=== PATIENT | male | born 1965 | race Caucasian/White ===

== ENCOUNTER 2017-08-24 03:37 | Observation (INO) | payer MEDICARE, OTHER ==
[2017-08-24 04:05] LABS: #Eosinphils 0.1 thou/uL (0.0-0.7); #Lymphocytes 1.2 thou/uL (1.20-3.40); #Monocytes 0.2 thou/uL (0.11-0.59); #Neutrophils 9.4 thou/uL (1.40-6.50); %Basophils 0.3 % (0.0-1.0); %Eosinophils 0.6 % (0.0-10.0); %Monocytes 2.2 % (0.0-10.0); %Neutrophils 85.9 % (42.0-75.0); Hemoglobin 13.3 g/dL (14.0-18.0); Mean Corpuscular HGB CONC 33.6 g/dL (32.0-36.0); Mean Corpuscular Hemoglobin 31.4 pg (27.0-31.0); Mean Corpuscular Volume 93.5 fl (80.0-94.0); Mean Platelet Volume 6.8 fL (7.4-10.4); Platelet Count 182 thou/uL (130-400); RBC Distribution Width 11.6 % (11.5-14.5); Red Blood Cell (RBC) Count 4.24 mill/uL (4.70-6.10); White Blood Cell (WBC) Count 10.9 thou/uL (4.8-10.8)
[2017-08-24 04:26] LABS: ALT (SGPT) 23 U/L (8-55); AST (SGOT) 24 U/L (5-34); Albumin 3.8 g/dL (3.5-5.0); Alkaline Phosphatase 98 U/L (40-150); Anion Gap 13 mmol/L (10-20); BUN (Urea Nitrogen) 13 mg/dL (8.4-25.7); Bilirubin, Total 0.5 mg/dL (0.2-1.2); CK (CPK) 92 U/L (30-200); Calc. Creatinine Clearance 0 mL/min (70-130); Calcium 9.2 mg/dL (7.8-10.44); Carbon Dioxide 26 mmol/L (22-29); Chloride 107 mmol/L (98-107); Estimated GFR-MDRD 76; Globulin 2.7 g/dL (2.4-3.5); Glucose 97 mg/dL (70-105); Potassium 3.9 mmol/L (3.5-5.1); Protein, Total 6.5 g/dL (6.0-8.3); Sodium 142 mmol/L (136-145)
[2017-08-24 04:31] LABS: CKMB 0.7 ng/mL (0-6.6); Troponin I Less than 0.010 ng/mL (< 0.028)
[2017-08-24 05:18] LABS: Bilirubin Negative (Negative); Blood, Urine Negative (Negative); Clarity CLEAR (Clear); Glucose, Urine (Dipstick) Negative (Negative); Leukocyte Negative (Negative); Nitrite Negative (Negative); Protein, Urine (Dipstick) Negative (Neg-Trace); Specific Gravity, Urine 1.024 (1.002-1.036); Urobilinogen 0.2 mg/dL (0.2-1.0); pH, Urine 5.5 (5.0-9.0)
[2017-08-24] MEDS ORDERED: Acetaminophen 500 MG TAB ONE (05:28)
[2017-08-24] MEDS ORDERED: Ibuprofen 800 MG TAB ONE (06:18)
[2017-08-24] MEDS ORDERED: ADENOSINE 60 MG/20 ML VIAL ONE (06:44)
[2017-08-24 07:26] LABS: Troponin I Less than 0.010 ng/mL (< 0.028)
[2017-08-24] MEDS ORDERED: Ondansetron ODT 4 MG TAB PO PRN ×2 (07:36→08:07)
[2017-08-24] MEDS ORDERED: Acetaminophen 325 MG TAB PO PRN ×2 (07:36→08:07)
[2017-08-24] MEDS ORDERED: Ondansetron HCl/PF 4 MG/2 ML Vial IVP PRN (07:36)
[2017-08-24] MEDS ORDERED: Sodium Chloride 0.9% 1,000 ML IV SCH (07:45)
[2017-08-24 07:56] VITALS: BMI 30.9
[2017-08-24] MEDS ORDERED: Acetaminophen/Codeine 30-300mg Tablet PO PRN (08:07)
[2017-08-24] MEDS ORDERED: Benzonatate 100 MG CAP PO PRN (08:07)
--- NOTE | 2017-08-24 08:34 | HP ---
PRIMARY CARE PROVIDER: Robyn Luciano. CHIEF COMPLAINT: Referred to [facility] by [facility] for chest pain. HISTORY OF PRESENT ILLNESS: The patient woke up with chills, bodyaches, was told he had a fever of 1 01 in the emergency room. No sweat. He had a pressure chest pain into both arms that started about 3-4 o'clock this morning, now feels normal. He has had similar episodes multiple times in the past w ithout the chest pain. 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 ALLERGIES: Allergic to DEMEROL. CURRENT MEDICATIONS: Thiamine, mag oxide, trazodone 100 at bedtime, tizanidine 4 mg at bedtime, Lami ctal 150 mg twice a day, Klonopin 1 mg at bedtime, Flomax 0.4 mg daily, Protonix 40 mg daily, Proamat ine 5 mg daily, Prozac 40 mg at bedtime, Aricept 10 mg a day, Bupropion 150 mg 2 in the morning, Armo dafinil 150 mg daily, Abilify 5 mg daily, Tylenol #3 one or two every 6 hours as needed. PAST SURGICAL HISTORY: Total knee replacement on the right, knee surgery on the left, 2 kyphoplastie s post-falls fractures, facial reconstruction times many, left retinal detachment repair and multiple other minor musculoskeletal surgeries. FAMILY HISTORY: Mother with hypertension. SOCIAL HISTORY: , nonsmoker, nontobacco user. CODE STATUS: Full code status. next of kin. REVIEW OF SYSTEMS: EYES: Chronic blurred vision Diplopia, very poor vision in the left eye. ENT: No ear pain or drainage. No nasal bleeding. No trouble swallowing. CARDIAC: See present illness. No orthopnea or paroxysmal nocturnal dyspnea. RESPIRATORY: No cough, wheezing or asthma. GASTROINTESTINAL: No nausea, vomiting, diarrhea, constipation. GENITOURINARY: No hematuria or dysuria. MUSCULOSKELETAL: He has chronic pain syndrome in multiple areas of his body. He has had frequent fa lls. NEUROLOGIC: He has had a history of seizures on medications related to his traumatic brain injury. SKIN: Bruises easily. No rash. HEME/LYMPH: No tender or swollen lymph nodes. PHYSICAL EXAMINATION: GENERAL: He is an alert and cooperative man. VITAL SIGNS: Blood pressure 107/59, pulse 86, respirations 16, temperature 98.8. HEENT: Reveals pupils equal, round, reactive to light. Extraocular movements grossly intact. He angel s ptosis on the right, chronic. Sclerae white. Tympanic membranes clear. Nose clear. Oral mucous membranes are wet. Dental hygiene is good. NECK: No jugular venous distention, adenopathy or thyromegaly. CHEST: Clear to auscultation and percussion. HEART: Heart has a regular rate and rhythm. Heart sounds are clear. There are no appreciated murmu rs or gallops. ABDOMEN: Soft, bowel sounds are normal. There is no hepatosplenomegaly, no mass, no rebound, no bru its. EXTREMITIES: Reveal no cyanosis, clubbing or edema. PULSES: Carotid, radial, femoral, and dorsalis pedis pulses intact. SKIN: Warm and dry without significant bruising or rash. HEME/LYMPH: No petechial lesions. Warm, dry. No tender or swollen lymph nodes in axilla, inguinal or cervical area. NEUROLOGICAL: Right ptosis. Facies grossly symmetric. Extraocular movements are intact. Cranial n erve 7 intact. Moves all extremities. Deep tendon reflexes grossly symmetric. Toes downgoing bilat erally. EKG normal, reviewed by me. X-RAY FINDINGS: Chest x-ray, poor inspiration. No cardiomegaly, CHF or infiltrate, reviewed by me. LABORATORY DATA: Comp metabolic profile normal. Cardiac enzymes normal x2. White count is mildly e levated at 10.9 with an absolute neutrophilia, hemoglobin 13.3, platelet count 182,000. Urine is antony ar. ADMITTING DIAGNOSES: 1. Chest pain. 2. Closed head injury in the distant past. 3. Atrial septal defect repair in 2011. 4. Chronic tremor. 5. Seizure disorder. 6. Fever and chills without evidence of focal infection. PLAN: 1. Cardiac stress test. 2. Continue home medicines.
[2017-08-24] MEDS ORDERED: Aspirin 325 MG TAB PO SCH (09:00)
[2017-08-24] MEDS ORDERED: Bupropion 150 MG XL TAB PO SCH (09:00)
[2017-08-24] MEDS ORDERED: lamoTRIgine 100 MG TAB PO SCH (09:00)
[2017-08-24] MEDS ORDERED: Aripiprazole 10 MG TAB PO SCH (09:00)
[2017-08-24] MEDS ORDERED: Midodrine HCl 5 MG TAB PO SCH (09:00)
[2017-08-24] MEDS ORDERED: Tamsulosin HCl 0.4 MG CAP PO SCH (09:00)
[2017-08-24] MEDS ORDERED: Magnesium Oxide 400 MG TAB PO SCH (09:00)
--- NOTE | 2017-08-24 09:01 | RAD ---
ONE VIEW CHEST: HISTORY: Chest pain and anxiety. COMPARISON: 08/10/11. FINDINGS: There are sternotomy wires. Heart is enlarged. Pulmonary vessels and hilum are normal. Increased o pacification of the left lung base with pleural and parenchymal changes. Elevation right hemidiaphra gm. No pneumothorax or osseous abnormalities. IMPRESSION: Pleural and parenchymal changes of the left lung base. Continued surveillance. POS: OFF
[2017-08-24 14:56] LABS: Troponin I Less than 0.010 ng/mL (< 0.028)
--- NOTE | 2017-08-24 15:50 | NM ---
NUCLEAR MEDICINE MYOCARDIAL PERFUSION EVALUATION. 08/24/17 CLINICAL HISTORY: Chest pain. History of atrial septal defect repair. FINDINGS: Evaluation of stress and rest imaging reveals no significant perfusion defect. Gated imaging reveals wall motion and contractility with a calculated LVEF at 65%. Reference stress EKG portion of the exam through the Division of Cardiology for additional details. Calculated LVEF is 65%. IMPRESSION: 1. No sonographic evidence of significant ischemia or scarring. 2. Normal left ventricular systolic function. POS: MAVIS
[2017-08-24 15:51] VITALS: TEMP 97.8
[2017-08-24 16:02] VITALS: BP 100/50
--- NOTE | 2017-08-24 17:42 | DIS ---
DATE OF ADMISSION: 08/24/2017 DATE OF DISCHARGE: 08/24/2017 PRIMARY CARE PROVIDER: Robyn Luciano M.D. DISCHARGE DISPOSITION: Home. FINAL DIAGNOSES: Noncardiac chest pain, history of closed head injury in 1983, history of septal def ect and repair in 2011, chronic tremors. DISCHARGE MEDICATIONS: Same as home medicines, Tylenol No. 3 one or two every 6 hours as needed for pain, Abilify 5 mg daily, armodafinil 150 mg a day, bupropion XL 300 mg a day, Aricept 10 mg at bedti ar, ProAmatine 5 mg daily, Protonix 40 mg a day, Flomax 0.4 mg a day, Klonopin 1 mg at bedtime, Lamic tammy 150 mg twice a day, tizanidine 4 mg at bedtime, trazodone 100 mg at bedtime, Prozac 80 mg at bedt oneil. ALLERGIES: MEPERIDINE CODE STATUS: FULL. PENDING AT THE TIME OF DISCHARGE: Nothing. HISTORY: The patient referred to [facility] by [facility] for ch est pain. The patient awoke this morning with some chills, body aches which are not uncommon. He angel d pressure, chest pain radiating to both arms, unsure how long it lasted. His cardiorespiratory exam was unremarkable. His EKG was normal, reviewed by me. LABORATORY: Mild elevation of white count 10.9, hemoglobin 13.3, platelet count 182,000. D-dimer wa s normal 0.34. Comp metabolic profile normal. Cardiac enzymes normal. Urine is clear. Cardiac str ess test is normal. This has been discussed with the patient. He and his are comfortable with discharge. Currently, his vital signs, his last 2 blood pressures 107/59, 97/55; pulse 65-86; O2 sat 95 on room air; respirations 16-18. Cardiorespiratory exam normal. CONSULTATIONS: None. PROCEDURES: None. He has been asked to follow up with his primary care doctor in 7 days.
[2017-08-24] MEDS ORDERED: traZODone HCl 50 MG TAB PO SCH (21:00)
[2017-08-24] MEDS ORDERED: clonazePAM 1 MG TAB PO SCH (21:00)
[2017-08-24] MEDS ORDERED: Latanoprost 0.005% Ophth Soln 2.5 ml Bottle EA EYE SCH (21:00)
[2017-08-24] MEDS ORDERED: Donepezil HCl 10 MG TAB PO SCH (21:00)
[2017-08-24] MEDS ORDERED: tiZANidine HCl 4 MG TAB PO SCH (21:00)
--- NOTE | 2017-09-01 18:28 | EKG ---
Test Reason : CP Blood Pressure : / mmHG Vent. Rate : 077 BPM Atrial Rate : 077 BPM P-R Int : 172 ms QRS Dur : 098 ms QT Int : 414 ms P-R-T Axes : 037 051 066 degrees QTc Int : 468 ms Normal sinus rhythm Normal ECG Confirmed by VANCE RAZO D.O. ([id number]), loan expeditor MILLICENT FAUST ([id number]) on 09/01/2017 6:27:13 PM Referred By: Confirmed By:VANCE RAZO D.O.
== END 2017-08-24 16:24 | disposition home or self-care (01) ==
LOC: ERS 03:37 → 2SW 05:48
PROVIDERS: ADMIT Internal Medicine; ATTEND Internal Medicine
DX: R07.89 Other chest pain (principal); G40.909 Epilepsy, unspecified, not intractable, without status epilepticus; R25.1 Tremor, unspecified; R50.9 Fever, unspecified; Z88.5 Allergy status to narcotic agent; Z79.899 Other long term (current) drug therapy; Z87.828 Personal history of other (healed) physical injury and trauma
CPT/HCPCS: 71045; 78452; 80053; 81003; 82550; 82553; 84484 ×2; 85025; 85379; 87040; 93005; 93017; 99285; A9500; 36415; J0153

== ENCOUNTER 2019-08-18 16:46 | Emergency (ER) | payer MEDICARE, OTHER ==
[2019-08-18] MEDS ORDERED: Lidocaine 1% w/Epinephrine 1:100K 20 ML VIAL ONE (17:05)
[2019-08-18] MEDS ORDERED: Adacel (T-DAP) 0.5 ML SYRINGE ONE (17:11)
[2019-08-18] MEDS ORDERED: Bacitracin 1 PK ONE (18:05)
== END 2019-08-18 18:21 | disposition home or self-care (01) ==
LOC: ERS 16:46
DX: S01.311A Laceration without foreign body of right ear, initial encounter (principal); Z79.899 Other long term (current) drug therapy; X58.XXXA Exposure to other specified factors, initial encounter
CPT/HCPCS: 12013; 90471; 90715

== ENCOUNTER 2022-12-12 19:30 | Outpatient (CLI) | payer MEDICARE, BC | END 2022-12-12 19:31 | disposition home or self-care (01) | LOC: SLEEPLAB 19:30 | PROVIDERS: ATTEND Internal Medicine Critical Care Medicine | DX: G47.33 Obstructive sleep apnea (adult) (pediatric) (principal); R53.83 Other fatigue; E66.9 Obesity, unspecified; R06.83 Snoring | CPT/HCPCS: 95810 ==

== ENCOUNTER 2023-02-09 17:00 | Outpatient (CLI) | payer MEDICARE, BC | END 2023-02-09 17:01 | disposition home or self-care (01) | LOC: SLEEPLAB 17:00 | PROVIDERS: ATTEND Internal Medicine Critical Care Medicine | DX: G47.33 Obstructive sleep apnea (adult) (pediatric) (principal); R53.83 Other fatigue; E66.9 Obesity, unspecified; R06.83 Snoring; G47.10 Hypersomnia, unspecified; G47.31 Primary central sleep apnea; Z68.41 Body mass index [BMI] 40.0-44.9, adult | CPT/HCPCS: 95811 ==

== ENCOUNTER 2023-10-12 22:10 | Inpatient (IN) | payer MEDICARE, BC ==
[2023-10-12 22:40] LABS: #Basophils 0.04 10x3/uL (0.0-0.2); %Basophils 0.3 % (0.0-1.0); %Eosinophils 1.7 % (0.0-10.0); %Lymphocytes 18.1 % (21.0-51.0); %Monocytes 5.2 % (0.0-10.0); %Neutrophils 74.2 % (42.0-75.0); Hematocrit 35.5 % (42.0-52.0); Hemoglobin 11.7 g/dL (14.0-18.0); Mean Corpuscular Hemoglobin 28.3 pg (27.0-31.0); Mean Corpuscular Volume 85.7 fL (78.0-98.0); Mean Platelet Volume 9.4 fL (7.4-10.4); Platelet Count 227 10x3/uL (130-400); RBC Distribution Width 14.1 % (11.5-14.5); Red Blood Cell (RBC) Count 4.14 mill/uL (4.70-6.10)
[2023-10-12 23:00] LABS: ALT (SGPT) 11 U/L (8-55); AST (SGOT) 14 U/L (5-34); Albumin 2.8 g/dL (3.5-5.0); Alkaline Phosphatase 90 U/L (40-110); Anion Gap 11 mmol/L (10-20); BUN (Urea Nitrogen) 15 mg/dL (8.4-25.7); Bilirubin, Total 0.2 mg/dL (0.2-1.2); Calc. Creatinine Clearance 0 mL/min (70-130); Calcium 8.4 mg/dL (7.8-10.44); Carbon Dioxide 21 mmol/L (22-29); Chloride 110 mmol/L (98-107); Estimated GFR 86; Globulin 3.5 g/dL (2.4-3.5); Glucose 91 mg/dL (70-105); Potassium 3.8 mmol/L (3.5-5.1); Protein, Total 6.3 g/dL (6.0-8.3); Sodium 138 mmol/L (136-145)
[2023-10-12 23:04] LABS: Troponin I Less than 0.010 ng/mL (< 0.028)
[2023-10-12] MEDS ORDERED: Doxycycline 100 MG VIAL ONE (23:07)
[2023-10-12] MEDS ORDERED: Sodium Chloride 0.9% 200 ML ONE (23:07)
[2023-10-12] MEDS ORDERED: cefTRIAXone (ROCEPHIN) 1 GM VIAL ONE (23:09)
[2023-10-13] MEDS ORDERED: Lidocaine 1% MPF 2 ML VIAL ONE (00:46)
[2023-10-13] MEDS ORDERED: Ketorolac Tromethamine 30 MG (1 mL) VIAL ONE (00:46)
[2023-10-13] MEDS ORDERED: Acetaminophen 650 MG/20.3 ML UDCUP PO PRN (03:34)
[2023-10-13 05:15] VITALS: BMI 37.4
[2023-10-13] MEDS ORDERED: Bisacodyl 10 MG SUPP PR PRN (07:44)
[2023-10-13] MEDS ORDERED: Bisacodyl 5 MG TAB PO PRN (07:44)
[2023-10-13] MEDS ORDERED: Senokot S 8.6-50 MG TAB PO PRN (07:44)
[2023-10-13] MEDS ORDERED: Ondansetron PF 4 MG/2 ML Vial IVP PRN (07:44)
[2023-10-13] MEDS ORDERED: Electrolyte Replacement Protocol 1 EACH FS SCH (08:30)
[2023-10-13 08:52] LABS: Magnesium 2.1 mg/dL (1.6-2.6)
[2023-10-13] MEDS: Enoxaparin 40 MG (0.4 mL) SYRINGE SC SCH (08:54)
[2023-10-13] MEDS: BuPROPion XL 150 MG ER.TAB PO SCH (08:54)
[2023-10-13] MEDS: Doxycycline 100 MG in Sodium Chloride 0.9% 100 ML IVPB SCH (08:55)
[2023-10-13] MEDS: Tamsulosin HCl 0.4 MG CAP PO SCH (08:56)
[2023-10-13] MEDS: lamoTRIgine 100 MG TAB PO SCH (08:56)
[2023-10-13] MEDS: Magnesium Oxide 400 MG TAB PO SCH (08:56)
[2023-10-13] MEDS: Pantoprazole DR 40 MG TAB PO SCH (08:56)
[2023-10-13] MEDS: Potassium Chloride 20 MEQ TAB PO SCH (08:56)
[2023-10-13] MEDS: FLUoxetine HCl 20 MG CAP PO SCH (08:56)
[2023-10-13] MEDS: Trospium 20 MG TAB PO SCH (08:56)
[2023-10-13] MEDS ORDERED: Non-Formulary Item 1 EACH (Magnesium Oxide [Magnesium Oxide] 400 MG Tablet) PO SCH (09:00)
[2023-10-13] MEDS ORDERED: Non-Formulary Item 1 EACH (Solifenacin Succinate [Vesicare] 10 MG Tab) PO SCH (09:00)
[2023-10-13] MEDS ORDERED: ARMODAFINIL 150 MG PO SCH ×2 (09:00)
[2023-10-13] MEDS ORDERED: BuPROPion XL 150 MG ER.TAB PO SCH (09:00)
[2023-10-13] MEDS ORDERED: Non-Formulary Item 1 EACH (Fluoxetine Hcl [Fluoxetine Hcl] 40 MG Capsule) PO SCH (09:00)
[2023-10-13] MEDS ORDERED: Non-Formulary Item 1 EACH (Lamotrigine [Lamictal] 150 MG Tablet) PO SCH (09:00)
[2023-10-13] MEDS: Acetaminophen 325 MG TAB PO SCH (12:53)
[2023-10-13 13:25] LABS: Legionella Urinary Ag Negative (Negative); Strep pneumo Urine Ag NEGATIVE (NEGATIVE)
[2023-10-13] MEDS ORDERED: Iopamidol 370 76% 100 ML VIAL ONE (13:38)
[2023-10-13 14:37] LABS: Influenza A by NAA Not Detected (NotDetected); Influenza B by NAA Not Detected (NotDetected); RSV by NAA Not Detected (NotDetected); SARS-CoV-2 NAA Rapid Test Not Detected (NotDetected)
[2023-10-13 14:56] LABS: Troponin I Less than 0.010 ng/mL (< 0.028)
[2023-10-13] MEDS: cefTRIAXone\\ROCEPHIN 2 GM in Sodium Chloride 0.9% 100 ML IVPB SCH (17:23)
[2023-10-13] MEDS: Latanoprost 0.005% Ophth Soln 2.5 ml Bottle EA EYE SCH (20:23)
[2023-10-14 04:56] LABS: #Basophils 0.03 10x3/uL (0.0-0.2); %Basophils 0.2 % (0.0-1.0); %Eosinophils 2.2 % (0.0-10.0); %Lymphocytes 13.8 % (21.0-51.0); %Neutrophils 78.4 % (42.0-75.0); Hematocrit 35.2 % (42.0-52.0); Hemoglobin 11.3 g/dL (14.0-18.0); Mean Corpuscular HGB CONC 32.1 g/dL (32.0-36.0); Mean Corpuscular Hemoglobin 28.9 pg (27.0-31.0); Mean Platelet Volume 9.8 fL (7.4-10.4); Platelet Count 195 10x3/uL (130-400); RBC Distribution Width 14.6 % (11.5-14.5); Red Blood Cell (RBC) Count 3.91 mill/uL (4.70-6.10)
[2023-10-14 05:22] LABS: ALT (SGPT) 10 U/L (8-55); AST (SGOT) 13 U/L (5-34); Albumin 2.6 g/dL (3.5-5.0); Alkaline Phosphatase 86 U/L (40-110); Anion Gap 12 mmol/L (10-20); BUN (Urea Nitrogen) 10 mg/dL (8.4-25.7); Bilirubin, Direct 0.1 mg/dL (0.1-0.3); Bilirubin, Total 0.3 mg/dL (0.2-1.2); Calc. Creatinine Clearance 166 mL/min (70-130); Calcium 8.7 mg/dL (7.8-10.44); Carbon Dioxide 21 mmol/L (22-29); Chloride 112 mmol/L (98-107); Estimated GFR 102; Glucose 82 mg/dL (70-105); Potassium 4.2 mmol/L (3.5-5.1); Protein, Total 6.2 g/dL (6.0-8.3); Sodium 141 mmol/L (136-145)
[2023-10-14] MEDS ORDERED: Magnesium 2 GM/50 ML(in water) 2 GM in Premix 1 BAG IVPB SCH (08:00)
[2023-10-14] MEDS: cefTRIAXone (ROCEPHIN) 2 GM VIAL ONE (18:16)
[2023-10-14] MEDS: Donepezil HCl 10 MG TAB PO SCH (21:01)
[2023-10-16] MEDS: Doxycycline 100 MG CAP PO SCH ×2 (11:39→20:37)
[2023-10-16] MEDS: Cefdinir 300 MG CAP PO SCH ×2 (11:39→20:36)
[2023-10-16 21:37] LABS: Mycoplasma pneumoniae IgG AB 285 U/mL (0-99); Mycoplasma pneumoniae IgM AB Less than 770 U/mL (0-769)
[2023-10-17] MEDS: Gabapentin 300 MG CAP PO SCH ×2 (15:08→15:44)
[2023-10-18 04:22] LABS: #Basophils 0.04 10x3/uL (0.0-0.2); %Basophils 0.5 % (0.0-1.0); %Eosinophils 4.2 % (0.0-10.0); %Monocytes 8.6 % (0.0-10.0); %Neutrophils 61.3 % (42.0-75.0); Hematocrit 34.3 % (42.0-52.0); Hemoglobin 11.1 g/dL (14.0-18.0); Mean Corpuscular HGB CONC 32.4 g/dL (32.0-36.0); Mean Corpuscular Hemoglobin 28.5 pg (27.0-31.0); Mean Corpuscular Volume 87.9 fL (78.0-98.0); Mean Platelet Volume 9.3 fL (7.4-10.4); Platelet Count 255 10x3/uL (130-400); RBC Distribution Width 14.4 % (11.5-14.5)
[2023-10-18 04:52] LABS: Anion Gap 11 mmol/L (10-20); BUN (Urea Nitrogen) 11 mg/dL (8.4-25.7); Calc. Creatinine Clearance 115 mL/min (70-130); Calcium 8.8 mg/dL (7.8-10.44); Carbon Dioxide 24 mmol/L (22-29); Chloride 108 mmol/L (98-107); Estimated GFR 101; Glucose 91 mg/dL (70-105); Potassium 4.1 mmol/L (3.5-5.1); Sodium 139 mmol/L (136-145)
[2023-10-18 11:21] VITALS: TEMP 97.9
[2023-10-18 11:23] VITALS: BP 107/66
== END 2023-10-18 14:34 | DRG 312 ==
LOC: ERS 22:10 → 2SE 10-13 03:27 → OBSVTOIN 10-15 10:58 → 2NO 10-17 20:34
PROVIDERS: ADMIT Student in an Organized Health Care Education/Training Program; ATTEND Internal Medicine
DX: I95.1 Orthostatic hypotension (principal); A41.9 Sepsis, unspecified organism; J96.01 Acute respiratory failure with hypoxia; J18.9 Pneumonia, unspecified organism; G40.909 Epilepsy, unspecified, not intractable, without status epilepticus; F03.90 Unspecified dementia, unspecified severity, without behavioral disturbance, psychotic disturbance, mood disturbance, and anxiety; D64.9 Anemia, unspecified; D35.01 Benign neoplasm of right adrenal gland; S93.104A Unspecified dislocation of right toe(s), initial encounter; G62.9 Polyneuropathy, unspecified; Z96.651 Presence of right artificial knee joint; Z88.8 Allergy status to other drugs, medicaments and biological substances; Z79.899 Other long term (current) drug therapy; Z98.84 Bariatric surgery status; Z98.890 Other specified postprocedural states
CPT/HCPCS: 0241U; 36415; 36416; 70450; 71045; 71275; 80048; 80053; 80076; 83605; 83735; 83880; 84484; 85025; 87040; 87449; 87899; 93005; 93306; 94760; J0696; J1650; J1885; J3490; Q9967